=== PATIENT | female | born 1985 | race Two or more races ===

== ENCOUNTER 2019-02-25 10:38 | Emergency (ER) | payer MEDICAID ==
[~2019-02-25] VITALS: Ht 157.5 cm; Wt 86.2 kg
[~2019-02-25 10:38] MED LIST: HYDR-2678 PO; IBUP-1060 PO
[2019-02-25] MEDS ORDERED: IV NORMAL SALINE 1000ML BAG 1,000 ML IV ONE (11:30)
[2019-02-25] MEDS ORDERED: KETOROLAC 30 MG/ML VIAL. IVP ONE (11:30)
[2019-02-25] MEDS ORDERED: PROCHLORPERAZINE 10 MG/2 ML VIAL. IV ONE (11:30)
[2019-02-25] MEDS ORDERED: diphenhydrAMINE 50 MG/ML VIAL IVP ONE (11:30)
--- NOTE | 2019-02-25 11:51 | PHYS DOC ---
Past Medical History Past Medical History: Hypothyroid, Migraines Past Surgical History: Cholecystectomy, , Tubal ligation Alcohol Use: None Drug Use: None Adult General Chief Complaint Chief Complaint: HEADACHE HPI HPI Patient is a 34 year old female who presents with states 2 days ago began having a generalized headache but states that is more so on the right side of her head that hurts with pressure. States that throbbing and a pressure type pain. She denies visual changes, vomiting, abdominal pain, back pain, neck pain, dysuria, fever, chest pain, shortness of air. States that she had a cough d through Thursday that cause her to have some dizziness. She denies dizziness this time. She states she does have photophobia that started yesterday. Patient does have a history of migraines of which she is on topiramate. She last took the medication this morning at 7:30. She states for the last week she has also had left arm pain that goes down the outer part of the left arm and down into the hand states that there is tingling in her fingertips. States that usually this goes away but is staying more frequent. Patient states this is the worse headache she's ever had. Rating pain 8 out of 10. Review of Systems Review of Systems Constitutional: Denies fever or chills [] Eyes: Denies change in visual acuity, redness, or eye pain. Photophobia [] Respiratory: cough or denies shortness of breath [] GI: Denies abdominal pain.+ nausea, denies vomiting, bloody stools or diarrhea [] Musculoskeletal: Left arm pain with tingling, Denies back pain or joint pain [] Neurologic: headache, denies focal weakness or sensory changes [] All other systems were reviewed and found to be within normal limits, except as documented in this note. Current Medications Current Medications Current Medications Medications (Trade) Dose Ordered Sig/Eloy Start Time Stop Time Status Last Admin Dose Admin Diphenhydramine HCl (Benadryl) 25 mg 1X ONCE 02/25/19 11:30 02/25/19 11:31 DC 02/25/19 12:16 25 MG Ketorolac Tromethamine (Toradol 30mg Vial) 30 mg 1X ONCE 02/25/19 11:30 02/25/19 11:31 DC 02/25/19 12:19 30 MG Prochlorperazine Edisylate (Compazine) 10 mg 1X ONCE 02/25/19 11:30 02/25/19 11:31 DC 02/25/19 12:16 10 MG Sodium Chloride 1,000 ml @ 1,000 mls/hr 1X ONCE 02/25/19 11:30 02/25/19 12:29 DC 02/25/19 12:13 1,000 MLS/HR Allergies Allergies Allergies Coded Allergies Type Severity Reaction Last Updated Verified No Known Drug Allergies 09/18/14 No Physical Exam Physical Exam Constitutional: Well developed, well nourished, no acute distress, non-toxic appearance. [] HENT: Normocephalic, atraumatic, bilateral external ears normal, oropharynx moist, no oral exudates, nose normal. [] Eyes: PERRLA, EOMI, conjunctiva normal, no discharge. [] Neck: Normal range of motion, no tenderness, supple, no stridor. [] Cardiovascular:Heart rate regular rhythm, no murmur [] Lungs & Thorax: Bilateral breath sounds clear to auscultation [] Abdomen: Bowel sounds normal, soft, no tenderness, no masses, no pulsatile masses. [] Skin: Warm, dry, no erythema, no rash. [] Back: No tenderness, no CVA tenderness. [] Extremities: No tenderness, no cyanosis, no clubbing, ROM intact, no edema. [] Neurologic: Alert and oriented X 3, normal motor function, normal sensory function, no focal deficits noted. [] Psychologic: Affect normal, judgement normal, mood normal. Normal Physical exam[] Current Patient Data Vital Signs Vital Signs Date Time Temp Pulse Resp B/P (MAP) Pulse Ox O2 Delivery O2 Flow Rate FiO2 02/25/19 10:56 98.5 73 18 129/62 (84) 98 Room Air 98.5 Lab Values Laboratory Tests Test 02/25/19 11:35 White Blood Count 4.7 x10^3/uL (4.0-11.0) Red Blood Count 4.45 x10^6/uL (3.50-5.40) Hemoglobin 12.6 g/dL (12.0-15.5) Hematocrit 38.1 % (36.0-47.0) Mean Corpuscular Volume 86 fL (79-100) Mean Corpuscular Hemoglobin 28 pg (25-35) Mean Corpuscular Hemoglobin Concent 33 g/dL (31-37) Red Cell Distribution Width 15.1 % (11.5-14.5) H Platelet Count 278 x10^3/uL (140-400) Neutrophils (%) (Auto) 46 % (31-73) Lymphocytes (%) (Auto) 41 % (24-48) Monocytes (%) (Auto) 9 % (0-9) Eosinophils (%) (Auto) 2 % (0-3) Basophils (%) (Auto) 1 % (0-3) Neutrophils # (Auto) 2.2 x10^3/uL (1.8-7.7) Lymphocytes # (Auto) 1.9 x10^3/uL (1.0-4.8) Monocytes # (Auto) 0.4 x10^3/uL (0.0-1.1) Eosinophils # (Auto) 0.1 x10^3/uL (0.0-0.7) Basophils # (Auto) 0.1 x10^3/uL (0.0-0.2) Sodium Level 140 mmol/L (136-145) Potassium Level 3.7 mmol/L (3.5-5.1) Chloride Level 104 mmol/L (98-107) Carbon Dioxide Level 27 mmol/L (21-32) Anion Gap 9 (6-14) Blood Urea Nitrogen 11 mg/dL (7-20) Creatinine 0.7 mg/dL (0.6-1.0) Estimated GFR (Cockcroft-Gault) 95.8 BUN/Creatinine Ratio 16 (6-20) Glucose Level 94 mg/dL (70-99) Calcium Level 9.0 mg/dL (8.5-10.1) Total Bilirubin 0.7 mg/dL (0.2-1.0) Aspartate Amino Transferase (AST) 14 U/L (15-37) L Alanine Aminotransferase (ALT) 24 U/L (14-59) Alkaline Phosphatase 71 U/L (46-116) Troponin I Quantitative < 0.017 ng/mL (0.000-0.055) Total Protein 7.6 g/dL (6.4-8.2) Albumin 4.0 g/dL (3.4-5.0) Albumin/Globulin Ratio 1.1 (1.0-1.7) Laboratory Tests 02/25/19 11:35 Laboratory Tests 02/25/19 11:35 EKG EKG Sinus Rhythm and no STEMI[] Interpretation Time: [address] Sen Radiology/Procedures Radiology/Procedures [] Impressions: [id number] [place] [address] IMAGING REPORT Signed PATIENT: ISSAC MCMILLANUNT: [id number] : 1985 LOCATION: ER AGE: 34 SEX: F EXAM STATUS: REG ER ORD. PHYSICIAN: NICKY GONZALEZ APRN REASON: dizziness, nausea, left shoulder pain x1 day PROCEDURE: CHEST PA & LATERAL CHEST PA LATERAL History: Dizziness, nausea, left shoulder pain Comparison: 12/30/2006 Findings: 2 views of the chest are submitted. There is no infiltrate, pneumothorax, or effusion. Pericardial cardiac silhouette is within normal limits in size. Impression: 1. There is no radiographic evidence of acute cardiopulmonary disease. Electronically signed by: Amari Nazario MD (02/25/2019 12:18 PM) [facility] DICTATED and SIGNED BY: AMARI NAZARIO MD DATE: 02/25/19 1218 [facility] [address] [place] [address] IMAGING REPORT Signed PATIENT: ISSAC MCMILLANUNT: [id number] : 1985 LOCATION: ER AGE: 34 SEX: F EXAM STATUS: REG ER ORD. PHYSICIAN: NICKY GONZALEZ APRN REASON: headache PROCEDURE: CT HEAD WO CONTRAST CT HEAD WO CONTRAST History: Headache Comparison: None. Technique: Noncontrast CT imaging was performed of the head. Exposure: One or more of the following individualized dose reduction techniques were utilized for this examination: 1. Automated exposure control 2. Adjustment of the mA and/or kV according to patient size 3. Use of iterative reconstruction technique. Findings: No acute extra-axial or parenchymal hemorrhage is identified. There is no significant intra-axial mass effect, midline shift, or extra-axial fluid collection. The menendez-white differentiation of the major vascular territories is preserved. The ventricles, sulci, and cisterns are within normal limits in size and configuration. The mastoid air cells and the visualized paranasal sinuses are aerated. No acute calvarial abnormality is identified. Impression: 1. No acute intracranial abnormality is identified. Electronically signed by: Amari Nazario MD (02/25/2019 12:32 PM) [facility] DICTATED and SIGNED BY: AMARI NAZARIO MD DATE: 02/25/19 1232 Course & Med Decision Making Course & Med Decision Making Alert and oriented. PERRLA. Skin pink warm and dry. Mucous membranes moist. Speaks in full clear sentences. Full range of motion and strength in all extremities. No extremity swelling. No extremity weaknesses. Radial pulses strong and present. Lungs are clear to auscultation all lobes. Abdomen soft and nontender. Ambulatory with a steady gait. EKG shows sinus rhythm. Full range of motion of the neck and no neck tenderness. Nothing make the pain worse or better. The pain in the arm comes and goes. Denies injury or heavy lifting with the arm. Patient states her headache is gone. CT and x-ray show no acute findings. Blood work unremarkable. Patient follow-up with her primary care provider. Dragon Disclaimer Dragon Disclaimer This electronic medical record was generated, in whole or in part, using a voice recognition dictation system. NIHSS Stroke Scale NIH Stroke Scale: NIH Stroke Scale Response (Comments) Value Level of Consciousness: 0 Alert/Responsive 0 LOC Questions: 0 Answers both correctly 0 LOC Commands: 0 Performs both tasks 0 Best Gaze: 0 Normal 0 Visual: 0 No visual loss 0 Facial Palsy: 0 Normal, symmetrical 0 Motor - Left Arm 0 No drift 0 Motor - Right Arm 0 No drift 0 Motor - Left Leg 0 No drift 0 Motor: Right Leg 0 No drift 0 Limb Ataxia: 0 Absent 0 Sensory: 0 No loss 0 Best Language: 0 Normal 0 Dysathria: 0 Normal 0 Extinction and Inattention: 0 Normal 0 Total 0 Departure Departure Impression: Primary Impression: Migraine Additional Impression: Cervical radicular pain Disposition: 01 HOME, SELF-CARE Condition: STABLE Referrals: DINO FUNEZ MD (PCP) Patient Instructions: Cervical Radiculopathy, [id number], Migraine Headache Additional Instructions: follow up with primary care provider. Take medications as prescribed. Scripts Ibuprofen (IBUPROFEN) 600 Mg Tablet 600 MG PO PRN Q6HRS PRN for INFLAMMATION, #20 TAB Prov: NICKY GONZALEZ COMPRESSION MOLDING MACHINE SETTER 02/25/19 Methylprednisolone (MEDROL) 4 Mg Tab.ds.pk 1 PKG PO UD, #1 PKG Prov: NICKY GONZALEZ COMPRESSION MOLDING MACHINE SETTER 02/25/19 Problem Qualifiers Primary Impression: Migraine Migraine type: unspecified Status migrainosus presence: without status migrainosus Intractability: not intractable Qualified Codes: G43.909 - Migraine, unspecified, not intractable, without status migrainosus NICKY GONZALEZ COMPRESSION MOLDING MACHINE SETTER Feb 25, 2019 11:51
[2019-02-25 11:53] LABS: BASO # 0.1 x10^3/uL (0.0-0.2); BASO % 1 % (0-3); EOS # 0.1 x10^3/uL (0.0-0.7); EOS % 2 % (0-3); HEMATOCRIT 38.1 % (36.0-47.0); HEMOGLOBIN 12.6 g/dL (12.0-15.5); LYMPH # 1.9 x10^3/uL (1.0-4.8); LYMPH % 41 % (24-48); MEAN CORPUSCULAR HEMOGLOBIN 28 pg (25-35); MEAN CORPUSCULAR HGB CONC 33 g/dL (31-37); MEAN CORPUSCULAR VOLUME 86 fL (79-100); MONO # 0.4 x10^3/uL (0.0-1.1); MONO % 9 % (0-9); NEUT # 2.2 x10^3/uL (1.8-7.7); NEUT % 46 % (31-73); PLATELET COUNT 278 x10^3/uL (140-400); RED BLOOD COUNT 4.45 x10^6/uL (3.50-5.40); RED CELL DISTRIBUTION WIDTH 15.1 % (11.5-14.5); WHITE BLOOD COUNT 4.7 x10^3/uL (4.0-11.0)
[2019-02-25 12:02] LABS: CREATININE 0.7 mg/dL (0.6-1.0); GFR 95.8; POTASSIUM 3.7 mmol/L (3.5-5.1)
[2019-02-25 12:07] LABS: ALBUMIN/GLOBULIN RATIO 1.1 (1.0-1.7); TOTAL BILIRUBIN 0.7 mg/dL (0.2-1.0); TOTAL PROTEIN 7.6 g/dL (6.4-8.2)
--- NOTE | 2019-02-25 12:21 | RAD ---
CHEST PA LATERAL History: Dizziness, nausea, left shoulder pain Comparison: 12/30/2006 Findings: 2 views of the chest are submitted. There is no infiltrate, pneumothorax, or effusion. Pericardial cardiac silhouette is within normal limits in size. Impression: 1. There is no radiographic evidence of acute cardiopulmonary disease. Electronically signed by: Kevyn Valadez MD (02/25/2019 12:18 PM) [facility]
--- NOTE | 2019-02-25 12:35 | RAD ---
CT HEAD WO CONTRAST History: Headache Comparison: None. Technique: Noncontrast CT imaging was performed of the head. Exposure: One or more of the following individualized dose reduction techniques were utilized for this examination: 1. Automated exposure control 2. Adjustment of the mA and/or kV according to patient size 3. Use of iterative reconstruction technique. Findings: No acute extra-axial or parenchymal hemorrhage is identified. There is no significant intra-axial mass effect, midline shift, or extra-axial fluid collection. The menendez-white differentiation of the major vascular territories is preserved. The ventricles, sulci, and cisterns are within normal limits in size and configuration. The mastoid air cells and the visualized paranasal sinuses are aerated. No acute calvarial abnormality is identified. Impression: 1. No acute intracranial abnormality is identified. Electronically signed by: Kevyn Valadez MD (02/25/2019 12:32 PM) [facility]
[2019-02-25] MEDS ORDERED: METH4TAB2 PO (13:05)
[2019-02-25] MEDS ORDERED: IBUP-1007 PO (13:05)
--- NOTE | 2019-02-25 13:26 | EKG ---
[facility] [address] [place] [address] Test Date: 2019-02-25 Test Time: 11:30:04 Pat Name: JALIL MCMILLAN Department: Room: Gender: F Auto Garage Mechanic: : 1985 Requested By: NICKY GONZALEZ Order Number: [id number] Reading MD: Measurements Intervals [place] Rate: 63 P: 34 IL: 132 QRS: 17 QRSD: 88 T: 42 QT: 410 QTc: 423 Interpretive Statements SINUS RHYTHM QRS(T) CONTOUR ABNORMALITY CONSIDER ANTEROSEPTAL MYOCARDIAL DAMAGE POSSIBLY ABNORMAL ECG RI6.01 No previous ECG available for comparison
[2019-02-25 14:00] LABS: BILIRUBIN,URINE NEGATIVE (NEG); CLARITY,URINE CLEAR; COLOR,URINE YELLOW; NITRITE,URINE NEGATIVE (NEG); PROTEIN,URINE NEGATIVE (NEG-TRACE); UROBILINOGEN,URINE 0.2 mg/dL (0.2 mg/dL)
[2019-02-25 14:19] LABS: WBC,URINE 0 /HPF (0-4)
[2019-02-25 14:20] LABS: BACTERIA,URINE 0 /HPF (0-FEW); SQUAMOUS EPITHELIAL CELL,UR OCC /LPF
[2019-02-25 14:30] VITALS: BP 136/72
== END 2019-02-25 14:36 | disposition home or self-care (01) ==
LOC: ER 10:38
DX: G43.909 Migraine, unspecified, not intractable, without status migrainosus (principal); M54.12 Radiculopathy, cervical region; R42 Dizziness and giddiness; E03.9 Hypothyroidism, unspecified
CPT/HCPCS: 36415; 70450; 71046; 80053; 81001; 81025; 84484; 85025; 93005; 96361; 96374; 96375; 99285; J0780; J1200; J1885; J7030

== ENCOUNTER → 2019-09-26 | Outpatient (CLI) | payer MEDICAID ==
[~2019-09-26] MED LIST changes: +IBUP-1007 PO; +METH4TAB2 PO
--- NOTE | 2019-09-26 14:13 | RAD ---
Examination: THYROID ULTRASOUND History: Reason: Hypothyroidism / Spl. Instructions: / History: Comparison/Correlation: None Findings: Thyroid ultrasound exam was performed. Right thyroid lobe measures 4.2 cm x 1.2 cm x 1.5 cm. Left thyroid lobe measures 3.8 cm x 1 x 1.4 cm. Thyroid isthmus measures up to 0.4 cm anteroposterior. Normal flow on color Doppler imaging ileus evident. Heterogeneity of the thyroid gland diffusely is seen. There is no solitary dominant mass identified. Impression: Diffuse heterogeneity of the thyroid gland. No dominant nodule. Electronically signed by: Colin Lincoln MD (09/26/2019 2:10 PM) [id number]
== END | disposition home or self-care (01) ==
LOC: US 13:08
PROVIDERS: ATTEND Family Medicine
DX: E03.9 Hypothyroidism, unspecified (principal)
CPT/HCPCS: 76536

== ENCOUNTER → 2019-10-27 | Outpatient (CLI) | payer MEDICAID ==
[~2019-10-27] MED LIST changes: +BARIUM SULFATE 40% (APPLE) 148 GM PWD. PO ONE
--- NOTE | 2019-10-27 09:21 | RAD ---
PROCEDURE: VIDEO SWALLOW STUDY CLINICAL INDICATION / HISTORY: Reason: dysphagia, 1.6 MIN FLUORO TIME / Spl. Instructions: BARIUM ORDERED / History: . TECHNIQUE: Real-time fluoroscopic imaging examination was performed in conjunction with speech therapy. The patient was administered barium labeled thin liquids, pudding, and solid consistency compounds. FLUOROSCOPY TIME: 1.6 minutes. Number of Images: 0 COMPARISON: None FINDINGS: The patient exhibited normal oral control. There was free spill of thin liquids, pudding, and nectar consistency compounds into the vallecula and piriform sinus. No flash penetration was observed with thin liquids, nectar, and honey consistency compounds. No definite aspiration was observed. The patient tolerated solid barium label compounds. Patient complained of tightness in her neck during swallowing and pointed to her cervical esophagus as the area of discomfort. IMPRESSION: No evidence of oral, pharyngeal or oropharyngeal dysphasia.. Please refer to speech pathology notes for complete details and recommendations. Electronically signed by: Arvin Villa MD (10/27/2019 9:18 AM) [id number]
== END | disposition home or self-care (01) ==
LOC: RAD 08:45
PROVIDERS: ATTEND Family Medicine
DX: R13.10 Dysphagia, unspecified (principal)
CPT/HCPCS: 74230; 92611-GN

== ENCOUNTER → 2020-08-06 | Outpatient (CLI) | payer MEDICAID ==
[~2020-08-06] MED LIST changes: -BARIUM SULFATE 40% (APPLE) 148 GM PWD. PO ONE
--- NOTE | 2020-08-06 14:19 | RAD ---
EXAM: Nuclear gastric emptying scan. HISTORY: Pain. COMPARISON: None. TECHNIQUE: Serial static images were obtained over the stomach following oral administration of 2 mCi 99m-Tc sulfur colloid. FINDINGS: The stomach empties into the small bowel without evidence of reflux in the area of the esop hagus. Gastric retention percents: 1 hour 92% (normal range 34.8-91%) 2 hour 84% (normal range 2.7-60%) 3 hour 44% (normal range 0.5-28%) 4 hour 11% (normal range 0-10%) The estimated time for half emptying of gastric contents, i.e. 'gastric emptying time' is 170 minutes (normal is 66 +/- 22 minutes). IMPRESSION: Delayed gastric emptying. Electronically signed by: Harleen Mckeon MD (08/06/2020 2:16 PM) [id number]
== END ==
LOC: NM 08:03
PROVIDERS: ATTEND Internal Medicine Gastroenterology
DX: R10.9 Unspecified abdominal pain (principal)
CPT/HCPCS: 78264; A9541

== ENCOUNTER 2021-01-21 17:30 | Emergency (ER) | payer MEDICAID ==
[~2021-01-21] VITALS: Ht 165.1 cm; Wt 90.9 kg
[2021-01-21 19:17] VITALS: BP 147/74
[2021-01-21] MEDS ORDERED: KETOROLAC 60 MG/2 ML VIAL. IM ONE (20:00)
[2021-01-21] MEDS ORDERED: diphenhydrAMINE 50 MG/ML VIAL IM ONE (20:00)
[2021-01-21] MEDS ORDERED: PROCHLORPERAZINE 10 MG/2 ML VIAL. IM ONE (20:15)
--- NOTE | 2021-01-21 20:29 | PHYS DOC ---
Past Medical History Past Medical History: Hypothyroid, Migraines (LILLIAM KIMBROUGH APRN) Past Surgical History: Cholecystectomy, , Tubal ligation (LILLIAM KIMBROUGH APRN) Smoking Status: Current Every Day Smoker Alcohol Use: Occasionally Drug Use: None (LILLIAM KIMBROUGH APRN) General Adult EDM: Chief Complaint: HEADACHE HPI: HPI: Patient is a 36 year old female who presents with migraine. Patient states that she has had this headache off and on for 1 month, but worse in the last 2 weeks. Patient reports history of migraines that started 3 years ago. Reports light sensitivity and nausea. patient's been taking Tylenol and ibuprofen which relieves her pain. Rating pain currently at 9/10. Denies worst headache of her life. Denies thunderclap. Denies visual changes. No medical history. (LILLIAM KIMBROUGH APRN) Review of Systems: Review of Systems: ROS At least 10 ROS systems have been reviewed and are negative except as documented in the HPI. General: Negative except as outlined in HPI above. Skin: Negative except as outlined in HPI above. HEENT: Negative except as outlined in HPI above. Neck: Negative except as outlined in HPI above. Respiratory: Negative except as outlined in HPI above.. Cardiovascular: Negative except as outlined in HPI above. Abdomen: Negative except as outlined in HPI above. : Negative except as outlined in HPI above. Back/MSK: Negative except as outlined in HPI above. Neuro: Negative except as outlined in HPI above. Psych: Negative except as outlined in HPI above. (LILLIAM KIMBROUGH APRN) Heart Score: C/O Chest Pain: No Risk Factors: Risk Factors: DM, Current or recent (<one month) smoker, HTN, HLP, family history of CAD, obesity. Risk Scores: Score 0 - 3: 2.5% MACE over next 6 weeks - Discharge Home Score 4 - 6: 20.3% MACE over next 6 weeks - Admit for Clinical Observation Score 7 - 10: 72.7% MACE over next 6 weeks - Early Invasive Strategies (LILLIAM KIMBROUGH APRN) Current Medications: Current Medications Medications (Trade) Dose Ordered Sig/Eloy Start Time Stop Time Status Last Admin Dose Admin Diphenhydramine HCl (Benadryl) 50 mg 1X ONCE 01/21/21 20:00 01/21/21 20:01 DC 01/21/21 19:52 50 MG Ketorolac Tromethamine (Toradol Im) 60 mg 1X ONCE 01/21/21 20:00 01/21/21 20:01 DC 01/21/21 19:53 60 MG Prochlorperazine Edisylate (Compazine) 10 mg 1X ONCE 01/21/21 20:15 01/21/21 20:16 DC (LILLIAM KIMBROUGH APRN) Allergies: Allergies: Allergies Coded Allergies Type Severity Reaction Last Updated Verified No Known Drug Allergies 09/18/14 No (LILLIAM KIMBROUGH APRN) Physical Exam: PE: Constitutional: Well developed, well nourished, no acute distress, non-toxic appearance. [] HENT: Normocephalic, atraumatic, bilateral external ears normal, oropharynx mois t, no oral exudates, nose normal. [] Eyes: PERRLA, EOMI, conjunctiva normal, no discharge. [] Neck: Normal range of motion, no tenderness, supple, no stridor. [] Cardiovascular:Heart rate regular rhythm, no murmur [] Lungs & Thorax: Bilateral breath sounds clear to auscultation [] Abdomen: Bowel sounds normal, soft, no tenderness, no masses, no pulsatile masses. [] Skin: Warm, dry, no erythema, no rash. [] Back: No tenderness, no CVA tenderness. [] Extremities: No tenderness, no cyanosis, no clubbing, ROM intact, no edema. [] Neurologic: Alert and oriented X 3, normal motor function, normal sensory function, no focal deficits noted. [] Psychologic: Affect normal, judgement normal, mood normal. [] (LILLIAM KIMBROUGH APRN) Current Patient Data: Vital Signs: Vital Signs Date Time Temp Pulse Resp B/P (MAP) Pulse Ox O2 Delivery O2 Flow Rate FiO2 01/21/21 19:17 98.2 74 13 147/74 (98) 100 Room Air 98.2 (LILLIAM KIMBROUGH APRN) EKG: EKG: [] (LILLIAM KIMBROUGH APRN) Radiology/Procedures: Radiology/Procedures: [] (LILLIAM KIMBROUGH APRN) Course & Med Decision Making: Course & Med Decision Making Pertinent Labs and Imaging studies reviewed. (See chart for details) [] 36-year-old female presents with migraine headache. Pain and nausea treated in the emergency room. Patient denies worst headache of her life. Denies thunderclap. Patient has a history of migraines. Patient reports pain is improved after medication. She is reporting muscle tightness. Patient given muscle relaxer. Advised patient to follow-up with PCP to discuss further migraine management. Drink plenty of fluids. Discussed return precautions in length. Patient's h emodynamically stable upon disposition. (LILLIAM KIMBROUGH APRN) Course & Med Decision Making I was the Attending physician on the above date of service of this patient. This patient was evaluated, examined, treated, and dispositioned from the emergency department by the mid-level practitioner. Although I was working at the time , no assistance was requested. Electronically signed, Landon Prather DO (LANDON PRATHER DO) Nadiaon Disclaimer: Deb Disclaimer: This electronic medical record was generated, in whole or in part, using a voice recognition dictation system. (LILLIAM KIMBROUGH APRN) Departure Departure Impression: Primary Impression: Migraine Qualified Codes: G43.909 - Migraine, unspecified, not intractable, without status migrainosus Additional Impression: Nausea Disposition: HOME / SELF CARE / HOMELESS Condition: STABLE Referrals: JASWINDER ALEXANDER [facility]TER-[facility] (PCP) Patient Instructions: Recurrent Migraine Headache, [id number] Additional Instructions: You are seen in the emergency room for migraine headache. You were given medications for pain and nausea. Make sure you are drinking plenty of fluids at home. Please follow-up with your PCP for further migraine management. Return to the emergency room if you have worsening symptoms or concerns EMERGENCY DEPARTMENT GENERAL DISCHARGE INSTRUCTIONS Thank you for coming to [facility] Emergency Department (ED) today and trusting us with you care. We trust that you had a positive experience in our Emergency Department. If you wish to speak to the department management, you may call the Director at [phone]. YOUR FOLLOW UP INSTRUCTIONS ARE FOLLOWS: 1. Do you have a private Doctor? If you do not have a private doctor, please ask for a resource list of physicians or clinics that may be able to assist you with follow up care. 2. The Emergency Physicain has interpreted your x-rays. The X-Ray specialist will also review them. If there is a change in the findings, you will be notified in 48 hours when at all possible. 3. A lab test or culture has been done, your results will be reviewed and you will be notified if you need a change in treatment. ADDITIONAL INSTRUCTIONS AND INFORMATION: 1. Your care today has been supervised by a physician who is specially trained in emergency care. Many problems require more than one evaluation for a complete diagnosis and treatment. We recommend that you schedule your follow up appointment as recommended to ensure complete treatment of you illness or injury. If you are unable to obtain follow up care and continue to have a problem, or if your condition worsens, we recommend that you return to the ED. 2. We are not able to safely determine your condition over the phone nor are we able to give sound medical advice over the phone. For these safety reasons, if you call for medical advice we will ask you to come to the ED for further evaluation. 3. If you have any questions regarding these discharge instructions please call the ED at [phone]. SAFETY INFORMATION: In the interest of safety, wellness, and injury prevention; we encourage you to wear your sealbelt, if you smoke; quite smoking, and we encourage family to use a protective helmet for bicycling and other sporting events that present an increased risk for head injury. IF YOUR SYMPTOMS WORSEN OR NEW SYMPTOMS DEVELOP, OR YOU HAVE CONCERNS ABOUT YOUR CONDITION; OR IF YOUR CONDITION WORSENS WHILE YOU ARE WAITING FOR YOUR FOLLOW UP APPOINTMENT; EITHER CONTACT YOUR PRIMARY CARE DOCTOR, THE PHYSICIAN WHOSE NAME AND NUMBER YOU WERE GIVEN, OR RETURN TO THE ED IMMEDIATELY. LILLIAM KIMBROUGH APRN Jan 21, 2021 20:29 LANDON PRATHER DO Jan 26, 2021 06:07
[2021-01-21] MEDS ORDERED: CYCLOBENZAPRINE 10 MG TABLET. PO ONE (23:00)
== END 2021-01-21 22:32 | disposition home or self-care (01) ==
LOC: ER 17:30
DX: G43.909 Migraine, unspecified, not intractable, without status migrainosus (principal); R11.0 Nausea; E03.9 Hypothyroidism, unspecified; F17.200 Nicotine dependence, unspecified, uncomplicated
CPT/HCPCS: 96372; 99284; J0780; J1200; J1885